=== PATIENT | female | born 2000 | race American Indian/Alaskan Native ===

== ENCOUNTER 2021-03-27 16:30 | Emergency (ER) | payer SELFPAY ==
[2021-03-27] MEDS ORDERED: SODIUM CHLORIDE 0.9% 1000 ML IV SOLN IV ONE (17:31)
[2021-03-27] MEDS ORDERED: cefTRIAXone/NS 1 GM/50 ML 1 GM/50 ML BAG IV ONE (17:33)
[2021-03-27] MEDS ORDERED: ACETAMINOPHEN 500 MG TAB PO ONE (17:34)
--- NOTE | 2021-03-27 17:39 | Emergency Department Report ---
ED General Adult HPI - General Chief complaint: Neck Pain/Injury Stated complaint: BACK PAIN Source: patient Mode of arrival: Stretcher Limitations: No Limitations - History of Present Illness Initial comments: 20-year-old female with no significant past medical history here with complaint of fever. Patient states that on last night she went to a green party and on today she started having symptoms of fever. She also notes neck and lower back pain. She also notes some eye pain as well. She denies headache at this time. With her fever she is also having chills she denies any pain with urination. She does not know of any known sick contacts and has not been vaccinated for flu or COVID-19. She states she has had no chest pain but has had some cough and shortness of breath as well as some nausea vomiting. - Related Data Allergies Allergy/AdvReac Type Severity Reaction Status Date / Time No Known Allergies Allergy Unverified 03/27/21 16:38 ED Review of Systems ROS: Stated complaint: BACK PAIN Other details as noted in HPI Constitutional: chills, fever Eyes: eye pain ENT: throat pain Respiratory: cough, SOB at rest Cardiovascular: denies: chest pain Endocrine: no symptoms reported Gastrointestinal: nausea, vomiting. denies: abdominal pain Genitourinary: denies: dysuria Musculoskeletal: back pain Skin: denies: rash Neurological: denies: headache, weakness Psychiatric: denies: anxiety, depression Hematological/Lymphatic: denies: easy bleeding, easy bruising ED Physical Exam - General Limitations: No Limitations General appearance: alert, in no apparent distress - Head Head exam: Present: atraumatic, normocephalic - Eye Eye exam: Present: normal appearance - ENT ENT exam: Present: mucous membranes moist - Neck Neck exam: Present: normal inspection - Expanded Neck Exam Expanded Neck exam: Present: other (no meningsmus) - Respiratory Respiratory exam: Present: normal lung sounds bilaterally. Absent: respiratory distress - Cardiovascular Cardiovascular Exam: Present: regular rate, normal rhythm. Absent: systolic murmur, diastolic murmur, rubs, gallop - GI/Abdominal GI/Abdominal exam: Present: soft, normal bowel sounds - Rectal Rectal exam: Present: deferred - Extremities Exam Extremities exam: Present: normal inspection - Back Exam Back exam: Present: normal inspection - Neurological Exam Neurological exam: Present: alert, oriented X3 - Psychiatric Psychiatric exam: Present: normal affect, normal mood - Skin Skin exam: Present: warm, dry, intact, normal color. Absent: rash ED Course Vital Signs 03/27/21 03/27/21 16:38 18:30 Temperature 103 F H Pulse Rate 103 H Respiratory 16 Rate Blood Pressure 106/92 [Right] O2 Sat by Pulse 100 98 Oximetry - Reevaluation(s) Reevaluation #1: 03/27/21 20:58 Patient is improved after fluids, pain meds. Patient has a viral illness. I think bacterial meningitis is less likely given patient's neck pain has already resolved and her neck has been supple with the whole time she is here. I did discuss lumbar puncture but patient does not wish to undergo that. Patient does wish to undergo CT head for headaches. I will order. Patient feels comfortable with plan for discharge. Discussed that she should undergo COVID-19 testing. ED Medical Decision Making - Lab Data Result diagrams: 03/27/21 17:39 03/27/21 17:39 - Medical Decision Making Patient is a 20-year-old female here with complaints of fever. Patient reports that she has had fever for the past 1 day. She also notes some back pain and neck pain. Differential includes pyelonephritis, viral illness, considered but less likely is meningitis given lack of headache and that patient is not meningitic on exam. Plan for sepsis work-up including blood cultures, lactic acid, urine culture, urinalysis basic labs. Will give a dose of ceftriaxone 30 cc/kg IV fluid bolus and Tylenol and will reassess patient after. Critical care attestation.: If time is entered above; I have spent that time in minutes in the direct care of this critically ill patient, excluding procedure time. ED Disposition Clinical Impression: Fever, Viral illness Disposition: HOME / SELF CARE / HOMELESS Is pt being admited?: No Does the pt Need Aspirin: No Condition: Stable Instructions: Fever, Adult, [id number], Viral Illness, Adult Additional Instructions: You should undergo testing for flu and Covid. Please look online for places that offer free testing. Referrals: PRIMARY CAREMD [Primary Care Provider] - 3-5 Days BESSY TIDWELL MD [Staff Physician] - 3-5 Days Time of Disposition: 22:20
[2021-03-27 18:03] LABS: Basophils # (Auto) 0.1 K/mm3 (0.0-0.1); Basophils % (Auto) 0.5 % (0.0-1.8); Eosinophils % (Auto) 0.5 % (0.0-4.3); Hematocrit 38.3 % (30.3-42.9); Hemoglobin 12.7 gm/dl (10.1-14.3); Lymphocytes # (Auto) 0.2 K/mm3 (1.2-5.4); Lymphocytes % (Auto) 2.5 % (13.4-35.0); Mean Corpuscular HGB Conc 33 % (30-34); Mean Corpuscular Volume 88 fl (79-97); Monocytes # (Auto) 0.7 K/mm3 (0.0-0.8); Monocytes % (Auto) 7.6 % (0.0-7.3); Platelet Count 202 K/mm3 (140-440); Red Blood Count 4.35 M/mm3 (3.65-5.03); Red Cell Distribution Width 14.6 % (13.2-15.2)
[2021-03-27 18:17] LABS: Alanine Aminotransferase 9 units/L (7-56); Albumin 4.5 g/dL (3.9-5); BUN/Creatinine Ratio 9; Blood Urea Nitrogen 7 mg/dL (7-17); Calcium 9.7 mg/dL (8.4-10.2); Hemolysis Index 5
[2021-03-27 18:47] LABS: HCG Qualitative,Urine Negative (Negative)
[2021-03-27 19:16] LABS: Bilirubin,Urine NEG (Negative); Blood,Urine NEG (Negative); Color,Urine Yellow (Yellow); Mucus,Urine FEW /HPF; Protein,Urine <15 mg/dL mg/dL (Negative); Urobilinogen,Urine < 2.0 mg/dL (<2.0)
--- NOTE | 2021-03-27 20:02 | XRay Report ---
CHEST 1 VIEW 03/27/2021 7:36 PM INDICATION / CLINICAL INFORMATION: Cough and fever. Headache and neck pain. COMPARISON: None available. FINDINGS: SUPPORT DEVICES: None. HEART / MEDIASTINUM: The heart size and pulmonary vasculature are normal. LUNGS / PLEURA: No significant pulmonary or pleural abnormality. No pneumothorax. ADDITIONAL FINDINGS: No significant additional findings. IMPRESSION: No acute findings. There is no evidence of pneumonia. Signer Name: Steven Wing MD Signed: 03/27/2021 7:57 PM Workstation Name: [id number]
--- NOTE | 2021-03-27 21:56 | Cat Scan Report ---
CT head/brain wo con INDICATION / CLINICAL INFORMATION: 20 years Female; headache. TECHNIQUE: Routine CT head without contrast. All CT scans at this location are performed using CT dos e reduction for ALARA by means of automated exposure control. COMPARISON: None. FINDINGS: BRAIN / INTRACRANIAL CONTENTS: The motion and beam hardening degrade the image quality. However, the brain parenchyma appears to demonstrate appropriate attenuation. The ventricular system is within nor mal limits in size and configuration. There is no clear CT evidence of acute intracranial hemorrhage or significant mass effect. ORBITS: No significant abnormality of visualized orbits. SINUSES / MASTOIDS: No significant abnormality in the visualized paranasal sinuses or mastoid air rubi ls. CRANIOCERVICAL JUNCTION: No significant abnormality. ADDITIONAL FINDINGS: None. IMPRESSION: 1. There is no CT ends of acute intracranial process. Signer Name: Winston Navarro MD Signed: 03/27/2021 9:52 PM Workstation Name: [id number]
[2021-03-27 22:46] VITALS: BP 99/60
== END 2021-03-27 22:47 | disposition home or self-care (01) ==
LOC: ED 16:30
DX: R50.9 Fever, unspecified (principal); B34.9 Viral infection, unspecified; M54.2 Cervicalgia; M54.50 Low back pain, unspecified; R51.9 Headache, unspecified
CPT/HCPCS: 36415; 70450; 71045; 80053; 81001; 81025; 82140; 85025; 87040; 96365; 99285; J0696; J7030; Q0162